=== PATIENT | female | born 2000 | race Caucasian/White ===

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

== ENCOUNTER 2019-03-25 10:45 | Emergency (ER) | payer OTHER, SELFPAY ==
[2019-03-25 10:48] VITALS: BP 103/59; PULSE 78; RESP 17; TEMP 36.9; O2SAT 99; BMI 19.0
--- NOTE | 2019-03-25 11:03 | RAD_ITS ---
STUDY: X-RAY - ABDOMEN/PELVIS REASON FOR EXAM: Female, 19 years old. Constipation TECHNIQUE: Frontal view of the abdomen COMPARISON: None. FINDINGS: There is no bowel obstruction. Prominent stool is present throughout the colon. The visualized osseous structures are within normal limits. RAD/Abdomen Single View IMPRESSION: No bowel obstruction. Prominent stool throughout the colon. Electronically Signed: Emmett Lucero, at 12:12 EST Tel , Service support ,
[2019-03-25] MEDS: 0.9% Normal Saline 1,000 ML 1000 ML IV (11:19)
[2019-03-25 11:24] LABS: Mucous, Urine 0 SEEN /hpf (<or=2+)
[2019-03-25 11:28] VITALS: BP 81/40; PULSE 57
[2019-03-25 11:29] LABS: Absolute Neutrophil Count 2.5 X10^3/uL (2.0-7.7); Basophil# 0.03 X10^3/uL; Basophil% 0.6 % (0-1); Eosinophil# 0.05 X10^3/uL; Hematocrit 39.9 % (37-47); Hemoglobin 13.4 g/dL (12.0-15.0); Lymphocyte % 39.3 % (19-41); Mean Corp Hgb Conc 33.6 g/dL (32-36); Mean Corpuscular Hgb 30.2 pg (27.0-32.0); Mean Corpuscular Volume 90.1 fL (81-99); Mean Platelet Vol. 9.3 fl (6.2-12.0); Monocyte# 0.39 X10^3/uL; Monocyte% 8.1 % (0-10); NRBC Flagged by Analyzer 0 % (0-5); Neutrophil # 2.45 X10^3/uL (2.7-7.7); Neutrophil % 50.8 % (47-70); Platelet Count 184 K/mm3 (150-450); RBC Distribution Width CV 12.2 % (11.6-14.6); RBC Distribution Width SD 40.1 fl (35.1-43.9); Red Blood Count 4.43 M/mm3 (4.2-5.4); White Blood Count 4.8 K/mm3 (4.4-11.0)
[2019-03-25 11:34] LABS: Color, Urine Yellow (Yellow); Glucose, Dipstick Normal (Normal); Ketone-Dipstick Negative (Negative); Leukocyte Esterase-Dipstick 100 /ul (Negative); Nitrite-Dipstick Negative (Negative); Occult Blood-Urine 250 /ul (Negative); Protein-Dipstick Negative (Negative); Urine Bilirubin Dipstick Negative (Negative); Urine Clarity Clear (Clear); Urine Urobilinogen Normal (Normal)
[2019-03-25 11:36] LABS: Internal QC Validated? YES +Cl - CLEAR BKGD; Pregnancy, Serum, hCG Quali. NEGATIVE Negative
--- NOTE | 2019-03-25 11:38 | ED.DCSUM_ITS ---
- ER Visit Summary Date of Service: 03/25/19 Chief Complaint: [Vaginal bleeding] History of Present Illness: The patient is a 19 F [presents to the emergency department with complaint of vaginal bleeding for the last 8 days. Patient states that she has had irregular bleeding for several months now and is s cheduled to change control pills next week. Patient sees Dr. Zaira Delgado. Patient complains of fatigue and intermittent lightheadedness especially with standing and walking. He describes lower abdominal discomfort intermittently and nausea. She does not think she is . Patient has had prior appendectomy. Patient at times will have light bleeding and only go through 1 pad in 1 day and at times she will go through 5 pads in a day. Patient passing small clots at times.] Physical Examination: HEENT-PERRLA, EOMI. Cranial nerves II through XII grossly intact. TMs clear. Mucous membranes moist. No adenopathy. Cardiovascular-regular rate and rhythm without murmur or ectopy Lungs-clear to auscultation, chest wall stable without crepitus or subcu emphysema Abdomen-normoactive bowel sounds, soft, nontender, no rebound or rigidity, no peritoneal signs. Extremities-intact ?4, normal range of motion, normal pulses, atraumatic] Test Results: [CBC with differential obtained showing a 4.8, hemoglobin 13, hematocrit 40, platelets 184.] hCG was negative. Chemistries unremarkable. Urinalysis without signs of infection. KUB obtained showed moderate stool throughout the colon but no signs of obstruction. Orthostatic vital signs were negative. Emergency Department Course and Treatment: [Patient given a liter of the same fluid bolus. 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 Quijano and no further instructions at this time other than to follow-up with her primary TR[employer].] Treatment Plan: [Patient will be given a bottle of magnesium citrate for home. He did not want anything further for pain.] Disposition: [Discharged home in stable condition.] Impression: [Dysfunctional uterine bleeding Constipation] This note was generated with [employer] Alertation software. It may contain incorrect words, spelling, and punctuation that were not noted in review of the chart prior to signing ED Disposition - Plan for ED Patient: Referrals: Elaine Feliz MD [Primary Care Provider] -
[2019-03-25 11:41] LABS: Anion Gap 10 (5-15); BUN 9 mg/dL (7-18); BUN/Creat Ratio 10.4 RATIO (10-20); Chloride 107 mmol/L (98-107); Creatinine, Serum 0.87 mg/dL (0.55-1.02); EST Glomerular Filtration Rate 89 mL/min (>60); Est Glom Filt Rate - Afr Amer 107 mL/min (>60); Estimated Creatinine Clearance 71.97 ml/min; Glucose 92 mg/dL (74-106); Potassium 3.7 mmol/L (3.5-5.1); Sodium Level 140 mmol/L (136-145)
[2019-03-25 11:57] VITALS: BP 89/42; BP 91/53; BP 95/58; PULSE 70; PULSE 71; PULSE 79
[2019-03-25 12:00] LABS: Bacteria 1+ /hpf (None Seen); Red Blood Cells-Urine 5-10 SEEN /hpf (0-5); Squamous Epithelial Cells - UA 5-10 SEEN /hpf (5-10); White Blood Cells 5-10 SEEN /hpf (0-5)
--- NOTE | 2019-03-25 12:18 | ED.DEP ---
ED Disposition - Plan for ED Patient: Instructions: Dysfunctional Uterine Bleeding, CONSTIPATION (Adult) Referrals: Elaine Feliz MD [Primary Care Provider] - Hanh Locke MD [STAFF PHYSICIAN] - 3-5 Days
[2019-03-25] MEDS: Magnesium Citrate 300 ML PO (12:35)
[2019-03-25 12:47] VITALS: BP 104/61
== END 2019-03-25 12:48 | disposition home or self-care (01) ==
LOC: ED 11:12
PROVIDERS: Emergency Provider Emergency Medicine; Family Provider Family Medicine; PCP Family Medicine
DX: N93.8 Other specified abnormal uterine and vaginal bleeding (principal); K59.00 Constipation, unspecified; R10.2 Pelvic and perineal pain
CPT/HCPCS: 74018; 80048; 81001; 84703; 85025; 96360; 99283; J7030

== ENCOUNTER 2019-05-18 07:24 | Day surgery (SDC) | payer OTHER, SELFPAY ==
[2019-05-12 16:04] LABS: Hematocrit 39.7 % (37-47); Hemoglobin 13.7 g/dL (12.0-15.0); Mean Corp Hgb Conc 34.5 g/dL (32-36); Mean Corpuscular Hgb 30.4 pg (27.0-32.0); Mean Platelet Vol. 9.8 fl (6.2-12.0); Platelet Count 201 K/mm3 (150-450); RBC Distribution Width CV 11.9 % (11.6-14.6); RBC Distribution Width SD 38.2 fl (35.1-43.9); Red Blood Count 4.51 M/mm3 (4.2-5.4); White Blood Count 6.7 K/mm3 (4.4-11.0)
[2019-05-12 16:24] LABS: Prothrombin Time (Protime)PT. 13.2 SECONDS (11.7-14.9)
[2019-05-12 16:25] LABS: Partial Thromboplast Time 27.7 Seconds (24.1-36.2)
[2019-05-18] VITALS (7 sets, daily range): BP systolic 90–107; BP diastolic 46–67; PULSE 61–90; RESP 14–16; TEMP 36.2–37.3; O2SAT 100; BMI 18.5
--- NOTE | 2019-05-18 06:17 | PCM.HPOB.BLA ---
- Problem List (1) Dysmenorrhea Status: Acute History and Physical Date of Admission: 05/18/19 Date: 05/12/2019 Name: LIDIA CONNOR Age: 19 Date of : 2000 HISTORY OF PRESENT ILLNESS: On 05/12/2019, Lidia Connor, a 19 year old female 0 0 0 0 0, presented for: -- Lidia is being seen for follow up and pre op visit today. Mother is with pt for appt today. Pt had US prior to visit today. Dr. Kenzie Delgado to go over US with pt and mother. Pt to have dx Laparoscopy for Endometriosis 05/18/[address] Kenzie Delgado. Consents signed and information reviewed. Medications and allergies are up to date. AM as above. Lidia has a history of severe dysmenorrhea refractory to OCPs. She had pelvic US today to r/o advanced endometriosis and is scheduled for diagnostic laparoscopy. shm -- irregular menses which began 2 months. Lidia claims it started sudden and has been present 2 months. It occurs with menses. It is located in the vaginal and is non-radiating. Additional comment: irregular menses, a little heavier bleeding and cramping. ALLERGIES: No Known Drug Allergies, Adhesive and Rash MEDICATIONS HISTORY: Current medications prescribed by our practice are: 1. YOAN (28) 3 mg-0.02 mg tablet, As Directed 1 tab po daily x 24 days then start new pack REVIEW OF SYSTEMS: GENERAL - Denies fever, or chills SKIN - Denies skin changes EYES - Denies visual changes EARS - Denies difficulty hearing NOSE - Denies nasal congestion or bleeding MOUTH - Denies sore throat or difficulty swallowing NECK - Denies pain or swelling RESPIRATORY - Denies shortness of breath or wheezing CARDIOVASCULAR - Denies palpitations or chest pain GASTROINTESTINAL - Denies nausea, vomiting, diarrhea, constipation GENITOURINARY - Denies dysuria, frequency of urination, incontinence of urine MUSCULOSKELETAL - Denies joint or muscle pain NEUROLOGICAL - Denies localized numbness or weakness PSYCHIATRIC - Denies depression or anxiety ENDOCRINE - Denies heat or cold intolerance, weight loss or gain HEMATO-IMMUNOLOGIC - Denies excesive bleeding with cuts PAST HISTORY: Breast/Ovarian/Colon Cancers - maternal great grandmother ovarian ca Infections - Chicken pox Illnesses - RA dx 2017. resolved in 2018. Accidents - None History of Abnormal PAPS - na Hospitalizations - Surgery SURGICAL HISTORY: 1. rt knee surgery 2. 12/31/2017 Left Knee Surgery fat taken out of fat pad 3. Appendectomy 4. T and A MENSTRUAL HISTORY: LMP Known?- DefiniteAmount/Duration - 5-6 days, Regularity - Regular, Frequency - variable days, LMP - 04/29/19, Age Onset Menarche - 11 PAST PREGNANCIES: Total Pregnancies - 0; Full Term Pregnancies - 0; Premature - 0; Abortions, Induced - 0; Abortions, Spontaneous - 0; Ectopics - 0; Multiple Births - 0; Living Children - 0 FAMILY HISTORY (OLD): FAMILY HISTORY: Mother - Hypercholesterolemia; Mother - Unknown Disease; Uncle - Heart Attack; MaternalGrandparent - FH: Hypertension; MaternalGrandparent - FH: Cancer of the esophagus; MaternalGreatgrandparent - Ovarian Carcinoma; PaternalGrandparent - Heart disorder; SOCIAL HISTORY: Alcohol Use - RARELY Smoking - Never Diet - no special diet Lifestyle - moderate stress lifestyle Exercise - minimal Seat Belt Use - always Employer - student at [employer] 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 Illicit Drug Use - denies use of street drugs Sexual Activity - did not discuss sexual history Residence - lives with parents Place of - [place] Control - not active BP- 100/60 Sitting, Right arm, regular cuff Temp- 98 Weight- 98.00 lbs Height- 59.75 inch BMI:19.34 CONSTITUTIONAL - NAD, well nourished, and well developed SKIN - No rash, lesions, or ulcers HEENT - normocephalic, atraumatic, sclerae anicteric LUNGS - clear to auscultation, no wheezing, no crackles and no rales CARDIAC - Regular rate and rhythm without rubs, murmurs, or gallops NEUROLOGICAL - normal gait, normal balance, normal motor PSYCHIATRIC - A and O to time, place, person, mood and affect DETAILED PELVIC EXAM External Genital Vagina - non-tender without lesions Urethra/Urethral Meatus - non-tender Bladder - non-tender Vagina - vaginal dunlap are pink and moist without loss of rugae and no evidence of atropy Cervix - has normal size and features without evident lesions Uterus - bimanual deferred Adnexa - bimanual deferred ASSESSMENT: PLAN BY DIAGNOSIS: 1. Bicornate Uterus, Dysmenorrhea and Unspecified US today suggests uterine septum, however cannot r/o bicornuate uterus No sonographic evidence of stage iv endometriosis Discussed plan for diagnostic laparoscopy, surgical treatment of endometriosis. Offered referral to advanced excisional laparoscopist at this time and pt understands that if Stage IV disease identified at time of procedure I will refer her for completion of procedure. Pt opts to proceed as planned. Procedural r/b/i/a reviewed NPO @ [place] prior to procedure. Body wash instructions reviewed
[2019-05-18 07:57] LABS: Internal QC Validated? YES +Cl - CLEAR BKGD; Pregnancy, Urine Negative Negative
[2019-05-18] MEDS: Lactated Ringers 1,000 ML 125 ML IV (08:10)
--- NOTE | 2019-05-18 09:00 | UT_PTH ---
PATIENT: LIDIA MAYA LOC: [facility] [place] U#:[id number] AGE/SX: 19/F ROOM: RE05/18/[address]: Dr. Hanh Delgado MD : 2000 BED: DIS: 05/18/2019 SPEC #: [id number] RECD: 05/18/19 13:14 STATUS: LEONARD RELorenzo #: [id number] KRYS: 05/18/19 09:[address]: Hanh Tang DEPT: SURGICAL PATHOLOGY RECD BY: Jayson Quarles ENTERED: 05/18/19 13:52 SP TYPE: UTERUS OTHR DR: Dr. Elaine Feliz MD Tissues: A - Uterus, NOS B - Uterus, NOS C - Uterus, NOS Procedures: Surgery Specimen Level IV HEADER OPERATION: Diagnostic laparoscopy, treatment of endometriosis PRE-OP DIAGNOSIS: Bicornate uterus, dysmenorrhea TISSUE SUBMITTED: A - Left uterosacral, B - Right uterosacral, C - Left mesosalpinx MICROSCOPIC DIAGNOSIS A. Left uterosacral, biopsy: Fragments of fibromuscular tissue with focal changes suggestive of endometriosis. B. Right uterosacral, biopsy: Fragments of fibroadipose and fibromuscular tissue with focal changes consistent with endometriosis. C. Left mesosalpinx: A fragment of fibromuscular and fibroadipose tissue, negative for endometriosis. SJ:daniel 05/19/19 COMMENT Clinical correlation and appropriate follow up are necessary. MICROSCOPIC DESCRIPTION Slides are reviewed. GROSS DESCRIPTION A - Received in fixative is one container labeled with the patient's name and designated left uterosacral. The specimen consists of two irregular fragments of shin-pink soft tissue that in aggregate measure 1.5 x 0.7 x 0.2 cm. The specimen is totally submitted in one cassette. B - Received in fixative is one container labeled with the patient's name and designated right uterosacral. The specimen consists of three irregular fragments of shin-pink soft tissue that in aggregate measure 2 x 1 x 0.3 cm. The specimen is totally submitted in one cassette. C - Received in fixative is one container labeled with the patient's name and designated left mesosalpinx. The specimen consists of an irregular piece of shin soft tissue measuring 1.5 x 0.5 x 0.1 cm. The specimen is totally submitted in one cassette. / SJ:rg 05/18/19 TC:5 CPT: 47996 x3
[2019-05-18] MEDS: Bupivacaine Mpf 0.5% 30 ML VIAL (11:00)
--- NOTE | 2019-05-18 11:12 | PCM.OPRPT ---
Problem List (1) Dysmenorrhea Status: Acute (2) Endometriosis determined by laparoscopy Status: Acute Report of Operation Date of Procedure: 05/18/19 Pre-Operative Diagnosis: Dysmenorrhea, Endometriosis Post-Operative Diagnosis: Dysmenorrhea, Endometriosis Surgery/Procedure Performed:: Diagnostic laparoscopy, Excision of endometriosis Description of Surgical Findings:: bilateral uterosacral endometriosis Stage 2 endometriosis airport operations specialist: Radha Waldron Type of Anesthesia:: General Anesthesiologist: Jose Lagunas Specimen's removed: 1. right uterosacral peritoneum. 2. left uterosacral peritoneum. 3. left mesosalpinx Estimated Blood Loss (mL): 10 Fluids Replaced: 1000 ml Description of Procedure: Indications: 19-year-old nulligravida with a history of dysmenorrhea refractory to oral contraceptives presents for scheduled diagnostic laparoscopy to rule out endometriosis. Procedural risks, benefits, indications and alternatives were reviewed. Informed consent was obtained and the patient desired to proceed. Procedure: The patient was taken to the operating room and signed was performed. She is placed in the dorsal supine position and induced under general anesthesia and intubated. She was placed into dorsal lithotomy and her arms were tucked at the sides. An examination under anesthesia was performed. The perineum and abdomen were prepped and draped in sterile fashion. The patient was placed into high lithotomy and straight catheterization of the bladder was performed. A weighted speculum is placed in the vagina and the cervix grasped the anterior cervical lip using a single-tooth tenaculum. The uterus sounded to 7 [address] attempted to place a ZUMI uterine manipulator however cervix was small and mildly atrophic. The tenaculum did not hold and cervical laceration occurred. Bleeding was controlled following the compression. Sponge stick was placed into the vagina. The patient was placed into low lithotomy attention turned to the abdomen. An inferior umbilical incision was made using a scalpel. A Veress needle was placed with successful hanging drop and no aspirate. The abdomen was insufflated to 15 mmHg. The Veress needle was removed and a 5 mm port was placed at this site under laparoscopic guidance. A suprapubic incision was made and a 5 mm port placed at this site. A tap block was placed the left lower quadrant and an incision was made here under transillumination. A 5 mm port was also placed at the site. In similar fashion right tap block was performed and followed by placement of a 5 mm port. The abdomen and pelvis were inspected. There is evidence of pelvic peritoneal endometriosis. There was poor uterine manipulation using a sponge stick thus I returned to the perineum and an acorn cannula was placed transcervically and secured to a single-tooth tenaculum for further uterine manipulation. I proceeded to the left uterosacral peritoneum where there were brown-yellow endometriotic lesions. The surrounding peritoneum was excised using the laparoscopic nadia and the peritoneum was sharply and bluntly dissected with removal of the endometriosis. Attention was turned to the right uterosacral peritoneum and in similar fashion and endometriotic lesion was excised with wide margin using sharp and blunt dissection as well as the monopolar electrocoagulation. And a peritoneal defect at the anterior mesosalpinx was excised sharply using the cold nadia. The pelvis was irrigated and suctioned. There is good hemostasis. Interceed was introduced into the abdomen and placed at the 3 peritoneal excisional sites. The procedure was complete. The abdomen was desufflated and the trochars were removed under laparoscopic guidance. The scope was also removed. The skin was closed using 4-0 Monocryl by the MEDIA MARKETING SPECIALIST under my supervision and Histacol was placed over the incisions. Attention was then turned to the perineum and the patient was placed into high lithotomy. The acorn uterine manipulator was removed. Cervical laceration site had small amount of oozing thus was reapproximated using 3-0 Vicryl Rapide with good hemostasis. The patient was then repositioned to dorsal supine position, awakened and extubated and transferred to the recovery room without complication. Sponge and needle counts were correct x2. - Complications none - Admit VTE Documentation VTE Present on Admission: No VTE Mechan Device Prophylaxis: SCD's VTE Pharm Prophylaxis ordered?: No
--- NOTE | 2019-05-18 12:55 | PCM.DC ---
- Discharge Diagnoses Current Active Problems: Current Active and Chronic Problems Endometriosis determined by laparoscopy (Acute) Reason(s) for Visit for Discharge Instructions: Laparoscopy You will use the following diet at home:: No restrictions Your food should be the consistency of: Regular Discharge Activity: Return to Normal Activity, May not drive while taking narcotic pain medications., May Shower, - - No tub bath for 1-2 weeks May resume sexual activity in: 4 weeks Lifting Restrictions: 10 lb Call your doctor if your incision/area has: Continuous Slow Oozing, Sudden Increased Bleeding, Increased Pain/ Swelling, Increased Redness Call your doctor if you observe: Fever of 101 or Higher, Inability to urinate, Inability to have a bowel movement, Using more than one pad per hour, Shortness of breath, Chest pain, Calf discomfort, Uncontrolled pain Suture Line Care: Avoid Pulling/Pushing Cleanse incision/area with: Soap & Water Instructions: What Is Endometriosis? Allergies/Adverse Reactions: Allergies adhesive Allergy (Verified 05/16/19 15:47) Rash Medications to take at Discharge Ethinyl Estradiol/Drospirenone [Ariadne 28 Tablet] 1 ea PO DAILY 03/25/19 Turmeric 400 mg PO DAILY 05/16/19 Docusate Sodium [Colace] 100 mg PO BID PRN PRN #60 cap 05/18/19 Ibuprofen 600 mg PO TID PRN #30 tab 05/18/19 Oxycodone [Oxyir] 5 mg PO Q6H PRN PRN 7 Days #20 tab 05/18/19 The following prescriptions were given: Docusate Sodium [Colace] 100 mg PO BID PRN PRN #60 cap PRN Reason: Constipation Transmission Status: Sent to [facility] [place] Ibuprofen 600 mg PO TID PRN #30 tab PRN Reason: pain Transmission Status: Sent to [facility] [place] Oxycodone [Oxyir] 5 mg PO Q6H PRN PRN 7 Days #20 tab PRN Reason: severe pain Prescription Printed Primary Care Physician: Elaine Feliz MD [Primary Care Provider] - Test Results: Test results from this visit will be discussed in further detail at your follow-up appointment, if applicable. Please Follow Up With: Hanh Locke MD When: 2-4 weeks
== END 2019-05-18 14:18 | disposition home or self-care (01) ==
LOC: SDC 07:24 → AC 07:25
PROVIDERS: PCP Family Medicine; Referring Provider Obstetrics & Gynecology; Visit Provider Obstetrics & Gynecology
PROC: (CPT 49320; principal; 2019-05-18 08:45)
DX: N80.9 Endometriosis, unspecified (principal); N99.71 Accidental puncture and laceration of a genitourinary system organ or structure during a genitourinary system procedure; N94.6 Dysmenorrhea, unspecified; Y83.8 Other surgical procedures as the cause of abnormal reaction of the patient, or of later complication, without mention of misadventure at the time of the procedure; Y76.3 Surgical instruments, materials and obstetric and gynecological devices (including sutures) associated with adverse incidents; Y92.234 Operating room of hospital as the place of occurrence of the external cause
CPT/HCPCS: 00840; 57720; 58662; 36415; 81025; 85027; 85610; 85730; 86850; 86900; 86901; 88305; J7120; J2405

== ENCOUNTER → 2020-12-31 | Outpatient (CLI) | payer OTHER, SELFPAY ==
[2021-01-04 13:54] LABS: HPV Reflexed? NOT INDICATED
== END | disposition home or self-care (01) ==
LOC: LABSPEC 15:39
PROVIDERS: PCP Family Medicine; Visit Provider Obstetrics & Gynecology
DX: Z12.4 Encounter for screening for malignant neoplasm of cervix (principal)
CPT/HCPCS: 88175; G0145